=== PATIENT | male | born 1950 | race Caucasian/White ===

== ENCOUNTER → 2017-03-20 | Outpatient (CLI) | payer MEDICARE, OTHER ==
[~2017-03-20] MED LIST: ASPIRIN325 M1 PO; CENTRUM SILVER PO; EFFIENT10 MG PO; METOPROLOL TAR25 MG PO; SIMVASTATIN80 MG PO
--- NOTE | ~2017-03-20 | CR63 ---
[facility] A Service of [facility] RADIOLOGY TEXT RESULTS PATIENT: WOODROW MARTINEZ LOCATION: [facility] : 46 UNIT #: [id number] AGE: [address]: Saturnino Pruett MD SEX: M ORDER DR: [id number] [facility] [address] [place], [place] [address] [id number] O MR#: [id number] Acc #: [id number] NAME: WOODROW MARTINEZ : 1950 SEX: M STUDY DATE/TIME: 03/20/2017 7:08 UNIT: [facility] ROOM: STUDY DESCRIPTION: CR Chest 2 View Attending Physician: Saturnino Pruett M.D. Referring Physician: Saturnino Pruett M.D. Ordering Physician: Saturnino Pruett M.D. Primary Care Physician: Salina Langston M.D. MEDICAL IMAGING REPORT This report is preliminary unless electronic signature is present EXAM PA and lateral chest 03/20/2017 INDICATION Shortness of air, follow up kidney cancer, evaluate for metastatic disease. COMPARISON 03/14/2016. FINDINGS PA and lateral views of the chest were obtained. The heart size and vascularity are normal. The lungs are clear. The bones are unremarkable. IMPRESSION No active disease. Dictated by... Douglas Palma M.D. THIS IS AN ELECTRONICALLY VERIFIED REPORT Douglas Palma M.D. at 03/20/2017 1:25 PM [place] TD: 03/20/2017 08:53 JOB #: [id number] MEDICAL IMAGING REPORT Page 1 of 1 COPY
--- NOTE | ~2017-03-20 | CT3 ---
[facility] A Service of [facility] RADIOLOGY TEXT RESULTS PATIENT: WOODROW MARTINEZ LOCATION: [facility] : 46 UNIT #: [id number] AGE: [address]: Saturnino Pruett MD SEX: M ORDER DR: [id number] [facility] [address] [place], [place] [address] [id number] O MR#: [id number] Acc #: [id number] NAME: WOODROW MARTINEZ : 1950 SEX: M STUDY DATE/TIME: 03/20/2017 7:50 UNIT: [facility] ROOM: STUDY DESCRIPTION: CT Abd and Pelv WWo Cont Attending Physician: Saturnino Pruett M.D. Referring Physician: Saturnino Pruett M.D. Ordering Physician: Saturnino Pruett M.D. Primary Care Physician: Salina Langston M.D. MEDICAL IMAGING REPORT This report is preliminary unless electronic signature is present EXAM CT abdomen and pelvis without and with contrast, renal mass protocol, 03/20/2017. HISTORY Bilateral kidney cancer in 2010. Annual follow up. No current complaints. COMPARISON CT abdomen and pelvis without and with contrast, 03/28/2016. PROCEDURE Precontrast and dynamic postcontrast imaging was obtained through the abdomen with attention to the kidneys. Postcontrast imaging was extended through the pelvis. Delayed 3-minute excretory phase images were also obtained. Sagittal and coronal reformatted images were acquired. Enteric contrast was not administered. This CT exam was performed with one or more of the following radiation dose reduction techniques: automatic exposure control, adjustment of mA and/or kV according to patient size, and iterative reconstruction. FINDINGS ABDOMEN: Surgical changes of partial left nephrectomy are demonstrated, predominantly along the posterior margin of the left mid to lower renal pole. No urinary tract stone is identified on noncontrast imaging. On dynamic postcontrast imaging, the kidneys enhance in a symmetric fashion. There are no suspicious enhancing renal masses. On delayed excretory phase imaging, there is no suspicious filling defect within the renal collecting systems or imaged portions of the ureters. Urinary bladder appears within normal limits. [facility] A Service of [facility] RADIOLOGY TEXT RESULTS PATIENT: WOODROW MARTINEZ LOCATION: [facility] : 46 UNIT #: [id number] AGE: [address]: Saturnino Pruett MD SEX: M ORDER DR: Lung bases are free of consolidation. Presumed calcification within the right coronary artery. The liver, gallbladder, spleen, pancreas, and right adrenal are normal. Left adrenal myelolipoma (Hounsfield units -97) is unchanged. There is also mild nodular thickening of the lateral limb of the left adrenal gland, measuring approximately 2.5 cm, unchanged from 03/14/2015, likely representing a benign lipid-poor adenoma. Mild diverticular changes are present within the descending and sigmoid colon without evidence of acute diverticulitis. Appendix is normal. No pathologic adenopathy or ascites is seen. PELVIS: Urinary bladder, prostate, and rectum are within normal limits. No pelvic adenopathy or free fluid. No suspicious osseous lesions. Advanced facet arthropathy at L4-5 and L5-S1. Suspected severe canal stenosis at L4-5 on the basis of degenerative change and grade 1 anterolisthesis of L4 upon L5. IMPRESSION 1. Stable findings since 03/28/2016. No convincing evidence of recurrent or metastatic disease in this patient with history of renal carcinoma. 2. Partial left nephrectomy changes. 3. Benign left adrenal myelolipoma. 2.5-cm left adrenal nodule is stable since 2014, in keeping with a benign finding such as a lipid-poor adenoma. 4. Uncomplicated colonic diverticulosis. 5. 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 Dictated by... Melody De La Rosa M.D. THIS IS AN ELECTRONICALLY VERIFIED REPORT Melody De La Rosa M.D. at 03/26/2017 8:36 AM [place] TD: 03/20/2017 12:21 JOB #: [id number] MEDICAL IMAGING REPORT Page 1 of 1 COPY
[2017-03-20 07:15] LABS: ALBUMIN SERUM 4.2 g/dL (3.5-5.0); BILIRUBIN,TOTAL 0.8 mg/dL (0.2-2.0); CALCIUM SERUM 8.9 mg/dL (8.4-10.2); CREATININE SERUM 0.8 mg/dL (0.6-1.4); GLOM FILT RATE Estimated 91.8 mL/min (>60); POTASSIUM 4.7 mmol/L (3.5-5.1); PROTEIN TOTAL SERUM 7.1 g/dL (6.0-8.3)
== END | disposition home or self-care (01) ==
LOC: CLAB 06:22
PROVIDERS: Urology
DX: Z08 Encounter for follow-up examination after completed treatment for malignant neoplasm (principal); D17.5 Benign lipomatous neoplasm of intra-abdominal organs; K57.30 Diverticulosis of large intestine without perforation or abscess without bleeding; M47.896 Other spondylosis, lumbar region; M43.16 Spondylolisthesis, lumbar region; Z85.53 Personal history of malignant neoplasm of renal pelvis; Z90.5 Acquired absence of kidney
CPT/HCPCS: 36415; 71020; 74178; 80053; Q9967